=== PATIENT | female | born 1955 | race Caucasian/White ===

== ENCOUNTER 2017-02-05 13:01 | Emergency (ER) | payer OTHER ==
--- NOTE | 2017-02-05 13:16 | EDPHY ---
H & P Time Seen by Provider: 02/05/17 13:01 HPI/ROS: CHIEF COMPLAINT: Headache and neck pain HISTORY OF PRESENT ILLNESS: Patient was skiing today and caught her tip on a sign and fell down injuring her head and right shoulder and neck. She arrives by EMS in a cervical collar complaining primarily of neck pain and right shoulder pain and headache Did not lose consciousness, no weakness or numbness in extremities. Symptoms are mild to moderate and a little bit worse with certain movements or palpation. Started immediately after the fall. REVIEW OF SYSTEMS: Eye: no change in vision ENT: no sore throat Cardiac: no chest pain or syncope Pulmonary: no cough or SOB Abdomen: no vomiting, diarrhea, abdominal pain Musculoskeletal: HPI Skin: no rash Neuro: HPI, no dizziness or vertigo. She was able to get up after the fall and ski down to the base of the hill. Constitutional: no fever : no urinary symptoms A comprehensive 10 point review of systems is otherwise negative aside from elements mentioned in the history of present illness. PAST MEDICAL HISTORY: Right knee surgery, adrenal insufficiency, breast biopsy. Social history: , no alcohol General Appearance: Alert and conversant, cooperative. Eyes: No scleral icterus. ENT, Mouth: Normal mucous membranes. Respiratory: Normal respiratory effort, breath sounds equal, lungs are clear to auscultation. Cardiovascular: Regular rate and rhythm. Normal right radial pulse and normal perfusion in the fingers of the hand. Gastrointestinal: Abdomen is soft and non tender. Neurological: Alert and oriented x3. Normally conversant. Face symmetric, normal movement and sensation in all extremities. Normal strength and sensation in deltoid, triceps, biceps, wrist extensors, intrinsics of both sides. Normal sensation to light touch in both upper extremities. Skin: Warm and dry, no rashes. Musculoskeletal: Patient has lower cervical spine tenderness but not in the thoracic or lumbar spine region. Pelvis is stable. She has some right shoulder pain with passive abduction but no clavicle or AC tenderness. Psychiatric: Not agitated. Emergency Department course/MDM: Declined pain medication; ice pack, head and cervical spine CT discussed and consented. Does not on arrival meet nexus criteria for cervical spine clinical clearance. Right shoulder x-ray. 1356: Negative head and cervical spine per Dr. Kowalski. 1410: Results discussed in detail at this time and clinically cleared by myself. She will follow up with her orthopedist within the next 1-2 weeks for her right shoulder. Ambulatory. Smoking Status: Never smoked Constitutional: Initial Vital Signs Temperature (C) 36.4 C 02/05/17 13:05 Heart Rate 78 02/05/17 13:05 Respiratory Rate 16 02/05/17 13:05 Blood Pressure 168/78 H 02/05/17 13:05 O2 Sat (%) 97 02/05/17 13:05 O2 Delivery Mode Room Air Allergies/Adverse Reactions: latex [Latex] Allergy (Verified 12/12/09 20:41) Home Medications: Medication Instructions Recorded ATIVAN 12/12/09 ESTRADIOL 12/12/09 LEVOXYL 12/12/09 LUNESTA 12/12/09 TESTOSTERONE 12/12/09 Coqunal 10/22/14 Fish Oil 10/22/14 Magnesium 10/22/14 VITAMIN B COMP W-C 10/22/14 Vitamin D3/Vitamin K2 10/22/14 Medical Decision Making - Diagnostics Imaging Results: Imaging Impressions Cervical Spine CT 02/05/17 13:14 Impression: 1. No acute posttraumatic abnormality identified. If there is persistent pain or neurologic deficit, consider MRI and/or flexion and extension views, if clinically indicated. 2. Degenerative change, most prominent at C5-C6. Findings discussed with Mikaela Ahuja MD on February 05, [address] 02/05/17 13:14 Impression: 1. No acute intracranial findings. 2. Diffuse cerebral atrophy with periventricular and subcortical low attenuation consistent with chronic microvascular ischemic gliosis. Findings discussed with MIKAELA AHUJA 02/05/2017 at 13:55. Shoulder X-Ray 02/05/17 13:14 Impression: No acute findings in the shoulder. Differential Diagnosis: Differential diagnosis considered for head injury including but not limited to concussion, skull fracture, intraparenchymal contusion, subarachnoid, subdural and epidural hematoma. Departure - Departure Disposition: Home, Routine, Self-Care Clinical Impression: Neck strain Qualifiers: Encounter type: initial encounter Qualified Code(s): S16.1XXA - Strain of muscle, fascia and tendon at neck level, initial encounter Concussion Qualifiers: Encounter type: initial encounter Loss of consciousness presence/duration: without LOC Qualified Code(s): S06.0X0A - Concussion without loss of consciousness, initial encounter Condition: Good Instructions: Cervical Strain (ED), Concussion (ED) Referrals: Patient,NotPresent [Unknown] - As per Instructions Kaye Koehler NP [Non Staff and Non MD] - As per Instructions
[2017-02-05 13:26] VITALS: TEMP 97.5
[2017-02-05 14:48] VITALS: BP 148/82; PULSE 74; RESP 18; O2SAT 98
== END 2017-02-05 14:48 | disposition home or self-care (01) ==
LOC: EDUNIT#
DX: S06.0X0A Concussion without loss of consciousness, initial encounter (principal); S16.1XXA Strain of muscle, fascia and tendon at neck level, initial encounter; Z91.040 Latex allergy status; V00.321A Fall from snow-skis, initial encounter; Y99.8 Other external cause status; Y93.23 Activity, snow (alpine) (downhill) skiing, snowboarding, sledding, tobogganing and snow tubing